=== PATIENT | female | born 1990 | race American Indian/Alaskan Native ===

== ENCOUNTER 2020-04-25 06:10 | Outpatient (CLI) | payer MEDICAID, OTHER ==
[2020-04-25 07:40] VITALS: BP 114/63
== END 2020-04-25 09:40 | disposition home or self-care (01) ==
LOC: TRG 06:10 → APU 06:28 → TRG 09:40
PROVIDERS: ATTEND Obstetrics & Gynecology
DX: O36.8130 Decreased fetal movements, third trimester, not applicable or unspecified (principal); O46.8X3 Other antepartum hemorrhage, third trimester; Z3A.37 37 weeks gestation of pregnancy
CPT/HCPCS: 59025

== ENCOUNTER 2020-05-15 05:04 | Inpatient (IN) | payer MEDICAID, OTHER ==
[2020-05-15] MEDS ORDERED: BICITRA ORAL LIQD 30ML PO ONE (05:39)
[2020-05-15] MEDS ORDERED: FAMOTIDINE 20 MG/2 ML INJ IV ONE (05:39)
[2020-05-15] MEDS ORDERED: METOCLOPRAMIDE 10 MG/2 ML INJ IV ONE (05:39)
[2020-05-15] MEDS: LACTATED RINGERS 1,000 ML IV SCH ×2 (05:50→11:06)
[2020-05-15] MEDS ORDERED: OXYTOCIN DRIP 30 UNITS/500 ML BAG IV SCH ×2 (06:00→09:00)
--- NOTE | 2020-05-15 06:18 | History and Physical Report ---
History of Present Illness Date of examination: 05/15/20 Date of admission: 05/15/2020 Chief complaint: contractions History of present illness: 29 yo at 40w2d c/b hx cervical dysplasia, hx PIH, Hx HSV, GBS pos, Vit D Deficiency, prior c/s x 1, Class I Obesity presenting with contractions and rupture of membranes. Denies vaginal bleeding. +FM. Denies PIH symptoms. 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, herpes Family/Genetic History: none, hypertension, stroke, other (Lupus) Social history: no significant social history - Obstetrical History : 4 Para: 1 Hx # Term Pregnancies: 1 Number of Pregnancies: 1 Induced : 1 Number of Living Children: 2 Medications and Allergies Allergies Allergy/AdvReac Type Severity Reaction Status Date / Time No Known Allergies Allergy Verified 05/15/20 05:43 Home Medications Medication Instructions Recorded Confirmed Last Taken Type Vit-Fe Fumar-FA [ 1 tab PO DAILY 02/06/20 02/06/20 Unknown History Vitamin] Active Meds: Active Medications Lactated Ringer's (Lactated Ringers) 1,000 mls @ 2,250 mls/hr IV PREOP RADHA Stop: 05/16/20 06:27 Last Admin: 05/15/20 05:50 Dose: 2,250 mls/hr Documented by: Oxytocin/Sodium Chloride (Pitocin/Ns 30 Unit/500ml) 30 units in 500 mls @ 0 mls/hr IV TITR RADHA; Protocol Review of Systems All systems: negative (expect HPI) - Vital Signs Vital signs: Vital Signs Pulse Pulse Ox 77 99 05/15/20 05:12 05/15/20 05:12 Temp Pulse Resp BP Pulse Ox 98.6 F 77 18 128/78 99 05/15/20 05:14 05/15/20 06:12 05/15/20 05:14 05/15/20 05:14 05/15/20 06:12 - Physical Exam Abdomen: Positive: normal appearance, normal bowel sounds - Obstetrical FHR: category 2 (minimal variability) Uterine Contraction Monitor Mode: External Uterine Contraction Frequency (min): 5 Uterine Contraction Pattern: Regular Uterine Contraction Intensity: Strong/Firm Results All other labs normal. Assessment and Plan - Patient Problems (1) S/P Current Visit: Yes Status: Acute Plan to address problem: To OR for repeat c section s/p ROM --Questions solicited and answered --Consented in the chart --Desires future fertility
[2020-05-15 06:32] LABS: Basophils % (Auto) 0.3 % (0.0-1.8); Eosinophils # (Auto) 0.2 K/mm3 (0.0-0.4); Eosinophils % (Auto) 2.2 % (0.0-4.3); Lymphocytes # (Auto) 2.2 K/mm3 (1.2-5.4); Lymphocytes % (Auto) 28.3 % (13.4-35.0); Mean Corpuscular HGB Conc 34 % (30-34); Mean Corpuscular Volume 86 fl (79-97); Monocytes # (Auto) 0.5 K/mm3 (0.0-0.8); Monocytes % (Auto) 6.6 % (0.0-7.3); Platelet Count 208 K/mm3 (140-440); Red Blood Count 3.75 M/mm3 (3.65-5.03)
[2020-05-15] MEDS ORDERED: ceFAZolin/STERILE WATER 2 GM/20 ML SYRINGE IV ONE (06:45)
[2020-05-15] MEDS ORDERED: ONDANSETRON 4 MG/2 ML INJ IV PRN ×2 (06:55→08:15)
[2020-05-15] MEDS ORDERED: NalbUPHINE 10 MG/1 ML INJ IV PRN (06:55)
[2020-05-15] MEDS ORDERED: PROMETHAZINE 25 MG TAB PO PRN (06:55)
[2020-05-15] MEDS ORDERED: PROMETHAZINE 25 MG RECT SUPP PR PRN ×2 (06:55→08:15)
[2020-05-15] MEDS ORDERED: diphenhydrAMINE 50 MG/ML VIAL IV PRN (06:55)
[2020-05-15] MEDS ORDERED: NALOXONE 0.4 MG/1 ML INJ IV PRN ×2 (06:55→08:15)
--- NOTE | 2020-05-15 06:56 | Anesthesia Consultation ---
Anesthesia Consult and Med Hx Date of service: 05/15/20 - Airway Anesthetic Teeth Evaluation: Good ROM Head & Neck: Adequate Mental/Hyoid Distance: Adequate Mallampati Class: Class II Intubation Access Assessment: Good - Pulmonary Exam CTA: Yes - Cardiac Exam Cardiac Exam: RRR - Pre-Operative Health Status ASA Pre-Surgery Classification: ASA2 Proposed Anesthetic Plan: Spinal Nerve Block: TAP - Pulmonary Hx Smoking: No Hx Asthma: No COPD: No Hx Pneumonia: No Hx Sleep Apnea: No - Cardiovascular System Hx Hypertension: No Hx Heart Attack/AMI: No - Central Nervous System Hx Seizures: No Hx Psychiatric Problems: No - Gastrointestinal Hx Gastroesophageal Reflux Disease: No - Endocrine Hx Renal Disease: No Hx End Stage Renal Disease: No Hx Insulin Dependent Diabetes: No Hx Non-Insulin Dependent Diabetes: No Hx Hypothyroidism: No Hx Hyperthyroidism: No - Hematic Hx Anemia: No Hx Sickle Cell Disease: No - Other Systems Hx Alcohol Use: No
--- NOTE | 2020-05-15 06:57 | Anesthesia Day of Surgery ---
Anesthesia Day of Surgery - Day of Surgery Patient Examined: Yes Patient H&P Reviewed: Yes Patient is NPO: Yes Beta Blockers: No Cardiac Clearance: No Pulmonary Clearance: No Jacob's Test: N/A
--- NOTE | 2020-05-15 06:58 | Progress Note ---
Spinal Anesthesia Block - Spinal Anesthesia Block Start Time: 06:34 Stop Time: 06:50 Performed by:: GAYATHRI GALLOWAY ([facility]) Procedure: Spinal anesthesia block is being performed for [C/S]. H&P, labs have been reviewed. Patient's questions and concerns have been answered. Informed consent has been performed. Timeout has was performed. Patient in sitting position on side of bed. Sterile prep and drape was performed. 3 mL 1% lidocaine skin wheal at L [3]-L [4]. Needle introducer advanced. 25-gauge spinal needle advanced, [+] CSF [-] blood. [Marcaine 10.5mg and Precedex 5mcg] Spinal dose was given. All needles removed. Patient tolerated procedure well.
[2020-05-15] MEDS ORDERED: KETOROLAC 30 MG/1 ML INJ ONE (07:17)
[2020-05-15] MEDS ORDERED: OXYTOCIN 10 UNIT/1 ML INJ ONE (07:17)
[2020-05-15] MEDS ORDERED: ONDANSETRON 4 MG/2 ML INJ ONE (07:17)
[2020-05-15] MEDS ORDERED: BUPIVACAINE /DEX-WATER 0.75% (2 ML) AMPULE INFILTRATI ONE (07:17)
[2020-05-15] MEDS ORDERED: ePHEDrine SULFATE 50 MG/1 ML INJ ONE (07:17)
[2020-05-15] MEDS ORDERED: dexAMETHasone 20 MG/5 ML VIAL ONE (07:17)
--- NOTE | 2020-05-15 08:13 | Procedure Note ---
OB Delivery Note - Delivery Date of Delivery: 05/15/20 Surgeon: GORDO STUART JR Estimated blood loss: other (600cc) - Section Preop diagnosis: repeat , other (rupture of membranes) Postop diagnosis: same section procedure: section, repeat low transverse Disposition: PACU Complications: none Narrative: Indication: 29 yo at 40w2d c/b hx cervical dysplasia, hx PIH, Hx HSV, GBS pos, Vit D Deficiency, prior c/s x 1, Class I Obesity presenting with co ntractions and rupture of membranes presenting for repeat c section. Delivery of male at 0722 Height 19 inches Weight 4065 g Apgars 8/9 EBL 600 cc Intraoperative IV fluids 1500 cc Urine output 300cc Findings: Normal uterus, tubes and ovaries. Clear fluid. No nuchal cord. Delivery of terminal meconium. Procedure: Patient was taken to the operating room prepped and draped in the usual sterile fashion. Pfannenstiel skin incision was made and carried down to the underlying fascia. Fascia was incised and the incision was distended bilaterally. Rectus fascia was dissected off the rectus muscle superiorly and inferiorly. Peritoneum was identified and entered. Peritoneal incision extended superiorly and inferiorly. The bladder was visualized. The bladder blade was placed. Uterine hysterotomy incision was made and extended bilaterally. The baby was delivered in the typical vertex fashion. Baby was bulb suction at delivery. The cord was cut and clamped and handed off to the team. The placenta was delivered spontaneously. The uterus was exteriorized and cleared of all clots and debris. Uterine incision was closed with a 0 Vicryl in a running locked fashion. The uterine incision was reinforced with 2 [id number] sutures using 0 Vicryl. Hemablast was applied to the repaired incisional base. Good hemostasis was noted. The urine was noted to be clear. Uterus, tubes, and ovaries were returned to the abdominal cavity. Bilateral gutters were cleared and the abdomen and pelvis were irrigated. Good hemostasis noted. Attention was directed towards the rectus fascia which was reapproximated with 0 PDS in a running fashion. The subcutaneous tissue was irrigated and reapproximated with 2-0 Vicryl in a running fashion. Skin was closed with a 4-0 Vicryl in a subcuticular fashion. The procedure was completed and the patient tolerated the procedure well. All instruments and lap counts were correct x2. - A at 1 minute: 8 at 5 minutes: 9 Infant Gender: Male
[2020-05-15] MEDS ORDERED: SIMETHICONE 80 MG CHEW TAB PO PRN (08:15)
[2020-05-15] MEDS ORDERED: MORPHINE 4 MG/1 ML INJ IV PRN (08:15)
[2020-05-15] MEDS ORDERED: HYDROCORTISONE 25 MG RECTAL SUPP PR PRN (08:15)
[2020-05-15] MEDS ORDERED: LANOLIN/ZINC/DIMETHICONE (LANSINOH) 7 GM TP PRN (08:15)
[2020-05-15] MEDS ORDERED: WITCH HAZEL/ GLYCERIN PAD TP PRN (08:15)
[2020-05-15] MEDS: KETOROLAC 30 MG/1 ML INJ IV SCH ×2 (11:07→18:42)
[2020-05-15] MEDS: HYDROmorphone 1 MG/1 ML INJ IV PRN (17:48)
[2020-05-15] MEDS: oxyCODONE /ACETAMINOPHEN 5-325MG TAB PO PRN (19:47)
[2020-05-15 21:16] LABS: Hematocrit 26.4 % (30.3-42.9); Hemoglobin 8.6 gm/dl (10.1-14.3)
[2020-05-15] MEDS ORDERED: MAGNESIUM HYDROXIDE (MOM) ORAL LIQD UDC PO PRN (22:00)
[2020-05-15] MEDS ORDERED: SENNOSIDES 8.6 MG TAB PO PRN (22:00)
[2020-05-16] MEDS: HYDROmorphone 1 MG/1 ML INJ IV PRN (00:25)
[2020-05-16] MEDS: oxyCODONE /ACETAMINOPHEN 5-325MG TAB PO PRN ×4 (01:05→16:37)
[2020-05-16] MEDS: IBUPROFEN 800 MG TAB PO PRN ×3 (06:32→21:35)
--- NOTE | 2020-05-16 21:52 | Post Anesthesia Evaluation ---
- Post Anesthesia Evaluation Patient Participated: Yes Airway Patent: Yes Stable Respiratory Function: Yes Nausea/Vomiting: No Temp > 96.8F: Yes Pain Manageable: Yes Adequeate Hydration: Yes Anesthesia Complications: No Block Receding Appropriately: Yes Patient on Ventilator: No
[2020-05-17] MEDS: oxyCODONE /ACETAMINOPHEN 5-325MG TAB PO PRN ×2 (04:18→09:42)
[2020-05-17] MEDS ORDERED: PRENATAL VIT27-FE FUMARATE-FOLIC ACID VIT TAB PO SCH (10:00)
[2020-05-17] MEDS ORDERED: FERROUS SULFATE 325 MG TAB PO SCH (10:00)
--- NOTE | 2020-05-17 10:27 | Discharge Summary ---
Providers - Providers Date of Admission: 05/15/20 05:26 Date of discharge: 05/17/20 Attending physician: GORDO STUART JR, MD Primary care physician: GORDO STUART JR, MD Hospitalization Reason for admission: section Delivery: Procedure: repeat low transverse Episiotomy: none Laceration: none Incision: intact (steri-strips intact, small amt of dried drainage noted no bleeding) Other procedures: none complications: none Discharge diagnosis: IUP at term delivered, other (anemia) Ada baby: male Hospital course: See admission H & P; OB operative note and PP progress notes Condition at discharge: Stable Disposition: - TO HOME OR SELFCARE - Discharge Diagnoses (1) Status post repeat low transverse section Status: Acute (2) Anemia Status: Acute Qualifiers: Anemia type: other cause Other causes of anemia: acute posthemorrhagic Qualified Code(s): D62 - Acute posthemorrhagic anemia Comment: Asymptomatic Plan - Discharge Medications Prescriptions: Ferrous Sulfate [Feosol 325 MG tab] 325 mg PO BID 30 Days #60 tablet Ibuprofen [Motrin 800 MG tab] 800 mg PO Q6H PRN #30 tablet PRN Reason: Pain, Mild (1-3) oxyCODONE /ACETAMINOPHEN [Percocet 5/325 mg] 1 tab PO Q6H PRN #30 tablet PRN Reason: Pain, Moderate (4-6) - Provider Discharge Summary Activity: routine, no sex for 6 weeks, no heavy lifting 4 weeks, no strenuous exercise Diet: other (Iron rich diet) Instructions: routine Additional instructions: [] Smoking cessation referral if applicable(refer to patient education folder for contact #) [] Refer to [facility] Booklet Call your doctor immediately for: * Fever > 100.5 * Heavy vaginal bleeding ( >1 pad per hour) * Severe persistent headache * Shortness of breath * Reddened, hot, painful area to leg or breast * Drainage or odor from incision. * Keep incision clean and dry at all times and follow doctor's instructions regarding bathing/showering - Follow up plan Follow up: GORDO STUART JR, MD [Primary Care Provider] - 14 Days Forms: [facility] Discharge Summary
[2020-05-17 13:57] VITALS: BP 135/79
== END 2020-05-17 14:00 | disposition home or self-care (01) | DRG 765 ==
LOC: TRG 05:04 → APU 05:05 → TRG 05:26 → APU 05:26 → OB 10:13
PROVIDERS: ADMIT Obstetrics & Gynecology; ATTEND Obstetrics & Gynecology
PROC: 10D00Z1 Extraction of Products of Conception, Low, Open Approach (ICD-10-PCS; principal; 2020-05-15)
DX: O34.211 Maternal care for low transverse scar from previous cesarean delivery (principal); D62 Acute posthemorrhagic anemia; Z3A.40 40 weeks gestation of pregnancy; Z37.0 Single live birth; O99.284 Endocrine, nutritional and metabolic diseases complicating childbirth; Z20.828 Contact with and (suspected) exposure to other viral communicable diseases; E55.9 Vitamin D deficiency, unspecified; O77.0 Labor and delivery complicated by meconium in amniotic fluid; O90.81 Anemia of the puerperium
CPT/HCPCS: 36415; 85014; 85018; 85025; 86850; 86900; 86901; G0378; J0690; J1100; J1170; J1885; J2270; J2405; J2590; J2765; J3490; J7120; U0003